=== PATIENT | female | born 1975 | race Hispanic/Latino ===

== ENCOUNTER 2019-02-10 02:03 | Emergency (ER) | payer OTHER ==
[2019-02-10] MEDS ORDERED: ALBUTEROL 2.5 MG/3 ML NEB SOL ONE (02:36)
--- NOTE | 2019-02-10 03:35 | EDPHYS ---
Physician Documentation [facility] Name: Trudy Polo Age: 43 yrs Sex: Female : 1975 Arrival Date: 02/10/2019 Time: 02:06 Bed 18 Private MD: ED Physician Abbe Harden HPI: 02/10 02:29 This 43 yrs old Female presents to ER via Wheelchair with complaints of Chest tw4 Pain, Back Pain. 02:29 The patient or guardian reports cough. Onset: The symptoms/episode began/occurred tw4 today. Severity of symptoms: At their worst the symptoms were moderate, in the emergency department the symptoms are unchanged. The patient has not experienced similar symptoms in the past. 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 - Social history:: Smoking status: Patient uses tobacco products, smokes one-half pack cigarettes per day. - Ebola Screening: : No symptoms or risks identified at this time. ROS: 02:29 Constitutional: Negative for fever, chills, and weight loss, Eyes: Negative for injury, tw4 pain, redness, and discharge, Abdomen/GI: Negative for abdominal pain, nausea, vomiting, diarrhea, and constipation, Back: Negative for injury and pain, MS/Extremity: Negative for injury and deformity, Skin: Negative for injury, rash, and discoloration, Neuro: Negative for headache, weakness, numbness, tingling, and seizure. 02:29 Cardiovascular: Positive for chest pain, with cough, of the anterior aspect of left upper chest and left breast, Negative for 02:29 Respiratory: Positive for cough, Negative for dyspnea on exertion, hemoptysis, orthopnea, pleurisy. Exam: 02:29 Constitutional: This is a well developed, well nourished patient who is awake, alert, tw4 and in no acute distress. Head/Face: Normocephalic, atraumatic. Chest/axilla: Normal chest wall appearance and motion. Nontender with no deformity. No lesions are appreciated. Cardiovascular: Regular rate and rhythm with a normal S1 and S2. No gallops, murmurs, or rubs. Normal PMI, no JVD. No pulse deficits. Respiratory: Lungs have equal breath sounds bilaterally, clear to auscultation and percussion. No rales, rhonchi or wheezes noted. No increased work of breathing, no retractions or nasal flaring. Abdomen/GI: Soft, non-tender, with normal bowel sounds. No distension or tympany. No guarding or rebound. No evidence of tenderness throughout. Back: No spinal tenderness. No costovertebral tenderness. Full range of motion. Skin: Warm, dry with normal turgor. Normal color with no rashes, no lesions, and no evidence of cellulitis. MS/ Extremity: Pulses equal, no cyanosis. Neurovascular intact. Full, normal range of motion. Neuro: Awake and alert, GCS 15, oriented to person, place, time, and situation. Cranial nerves II-XII grossly intact. Motor strength 5/5 in all extremities. Sensory grossly intact. Cerebellar exam normal. Normal gait. Vital Signs: 02:16 BP 150 / 86; Pulse 93; Resp 18; Temp 98.8(O); Pulse Ox 98% on R/A; Weight 120.2 kg (R); lp1 Height 5 ft. 5 in. (165.10 cm); Pain 0/10; 02:16 Body Mass Index 44.10 (120.20 kg, 165.10 cm) lp1 MDM: 02:19 Patient medically screened. tw4 02/10 02:20 Order name: XRAY Chest (1 view) tw4 02/10 02:20 Order name: O2 Per Protocol; Complete Time: 02:40 tw4 02/10 02:20 Order name: O2 Sat Monitoring; Complete Time: 02:40 tw4 Administered Medications: 02:39 Drug: Albuterol 2.5 mg Route: Inhalation; lp1 Disposition: 02/10/19 03:34 Discharged to Home. Impression: Acute bronchitis. - Condition is Stable. - Discharge Instructions: Acute Bronchitis, Adult. - Prescriptions for Tylenol- Codeine #3 300-30 mg Oral Tablet - take 2 tablet by ORAL route every 6 hours As needed; 30 tablet. Tessalon Perles 100 mg Oral Capsule - take 1 capsule by ORAL route every 8 hours As needed; 15 capsule. Zithromax Z- Magdaleno 250 mg Oral Tablet - take 1 tablet by ORAL route as directed for 5 days Day 1 - take two (2) tablets one time. Day 2, 3, 4 , 5 take one (1) tablet once daily.; 6 tablet. - Medication Reconciliation Form, Thank You Letter, Antibiotic Education, Prescription Opioid Use form. - Work release form (02/10/19 03:50). lp1 - Follow up: Private Physician; When: Upon discharge from the Emergency Department; Reason: If symptoms return, Recheck today's complaints, Continuance of care. - Problem is new. - Symptoms have improved. Signatures: Dispatcher [employer] EDMS Esther Mariano RN RN lp1 Abbe Harden MD MD tw4 Corrections: (The following items were deleted from the chart) 02:40 02:20 Cardiac monitoring ordered. tw4 lp1 02:40 02:20 EKG - Nurse/Tech ordered. 4 1 02:40 02:20 IV Saline Lock ordered. 4 1 02:40 02:20 Labs collected and sent ordered. 4 lp1 03:48 03:34 02/10/2019 03:34 Discharged to Home. Impression: Acute bronchitis. Condition is lp1 Stable. Forms are Medication Reconciliation Form, Thank You Letter, Antibiotic Education, Prescription Opioid Use. Follow up: Private Physician; When: Upon discharge from the Emergency Department; Reason: If symptoms return, Recheck today's complaints, Continuance of care. Problem is new. Symptoms have improved. tw4
--- NOTE | 2019-02-10 03:35 | ER ---
Nurse's Notes [facility] Name: Trudy Polo Age: 43 yrs Sex: Female : 1975 Arrival Date: 02/10/2019 Time: 02:06 Bed 18 Private MD: Diagnosis: Acute bronchitis Presentation: 02/10 02:15 Presenting complaint: Patient states: Cough x 1 week, productive white mucus; States lp1 pain to chest and back when coughing; denies any fever. Transition of care: patient was not received from another setting of care. Onset of symptoms was February 10, 2019. Risk Assessment: Do you want to hurt yourself or someone else? Patient reports no desire to harm self or others. Initial Sepsis Screen: Does the patient meet any 2 criteria? No. Patient's initial sepsis screen is negative. Does the patient have a suspected source of infection? No. Patient's initial sepsis screen is negative. Care prior to arrival: None. 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 - Social history:: Smoking status: Patient uses tobacco products, smokes one-half pack cigarettes per day. - Ebola Screening: : No symptoms or risks identified at this time. Screenin:20 Abuse screen: Denies threats or abuse. Denies injuries from another. Nutritional lp1 screening: No deficits noted. Tuberculosis screening: No symptoms or risk factors identified. Fall Risk None identified. Assessment: 02:19 General: Appears in no apparent distress. Behavior is calm, cooperative, appropriate lp1 for age. Pain: Complains of pain in back and chest Aggravated by coughing. Neuro: Level of Consciousness is awake, alert, obeys commands. Cardiovascular: Patient's skin is warm and dry. Respiratory: Reports shortness of breath cough that is productive, Respiratory effort is even, unlabored, Respiratory pattern is regular, Breath sounds are clear bilaterally. GI: No signs and/or symptoms were reported involving the gastrointestinal system. : No signs and/or symptoms were reported regarding the genitourinary system. EENT: No signs and/or symptoms were reported regarding the EENT system. Derm: Skin is pink, warm \T\ dry. Musculoskeletal: No deficits noted. 03:00 Reassessment: Patient states feeling better. Patient states symptoms have improved. lp1 Vital Signs: 02:16 BP 150 / 86; Pulse 93; Resp 18; Temp 98.8(O); Pulse Ox 98% on R/A; Weight 120.2 kg (R); lp1 Height 5 ft. 5 in. (165.10 cm); Pain 0/10; 02:16 Body Mass Index 44.10 (120.20 kg, 165.10 cm) lp1 ED Course: 02:06 Patient arrived in ED. cl3 02:14 Esther Mariano, RN is Primary Nurse. lp1 02:16 Triage completed. lp1 02:18 Abbe Harden MD is Attending Physician. tw4 02:18 Arm band placed on right wrist. lp1 02:21 Patient has correct armband on for positive identification. lp1 03:27 XRAY Chest (1 view) In Process Unspecified. EDMS 03:47 No provider procedures requiring assistance completed. Patient did not have IV access lp1 during this emergency room visit. Administered Medications: 02:39 Drug: Albuterol 2.5 mg Route: Inhalation; lp1 Outcome: 03:34 Discharge ordered by . tw4 03:48 Discharged to home ambulatory. lp1 03:48 Condition: good 03:48 Discharge instructions given to patient, Instructed on discharge instructions, follow up and referral plans. medication usage, Demonstrated understanding of instructions, follow-up care, medications, Prescriptions given X 3. 03:48 Patient left the ED. lp1 Signatures: Dispatcher [employer] EDMS Esther Mariano RN RN lp1 Abbe Harden MD MD tw4 Leslie Mccabe cl3
[2019-02-10 03:54] VITALS: BP 150/86; TEMP 98.8; O2SAT 98
--- NOTE | 2019-02-10 09:24 | RAD REPORT ---
EXAM DESCRIPTION: RAD - Chest Single View - 02/10/2019 3:27 am CLINICAL HISTORY: Chest pain, persistent cough COMPARISON: December 2016 TECHNIQUE: AP portable chest image was obtained 0312 hour . FINDINGS: Lung volumes are low. No peripheral mass, consolidation or failure findings. Heart and vas culature are normal. No measurable pleural effusion and no pneumothorax. No acute bony abnormality se en. No acute aortic findings suspected. IMPRESSION: No acute cardiopulmonary process. No significant interval change.
== END 2019-02-10 03:48 | disposition home or self-care (01) ==
LOC: ER 02:03
DX: J20.9 Acute bronchitis, unspecified (principal); I10 Essential (primary) hypertension; F17.210 Nicotine dependence, cigarettes, uncomplicated
CPT/HCPCS: 71045; 99284